=== PATIENT | female | born 1995 | race Caucasian/White ===

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

== ENCOUNTER 2017-02-10 17:14 | Emergency (ER) | payer MEDICAID ==
[~2017-02-10] VITALS: Ht 175.3 cm; Wt 77.7 kg
[~2017-02-10 17:14] MED LIST: ARIP30TA4 PO; ATOM40CA PO; TRAZ100T15 PO
[2017-02-10 17:16] VITALS: BP 118/72
[2017-02-10 18:02] LABS: HEMATOCRIT 42.6 % (34.6-47.8); HEMOGLOBIN 14.3 g/dL (11.7-16.4); WHITE BLOOD COUNT 7.3 x10^3/uL (4.5-13.2)
[2017-02-10 18:13] LABS: ASPARTATE AMINO TRANSFERASE 7 U/L (15-37); BLOOD UREA NITROGEN 20 mg/dL (7-18)
[2017-02-10] MEDS ORDERED: ONDANSETRON ODT 4 MG ONE (19:26)
[2017-02-10] MEDS ORDERED: ONDANSETRON ODT 4 MG PO ONE (19:30)
== END 2017-02-10 20:52 | disposition home or self-care (01) ==
LOC: ED 19:59
DX: R42 Dizziness and giddiness (principal); R11.0 Nausea; E03.9 Hypothyroidism, unspecified
CPT/HCPCS: 36415; 80053; 84439; 84443; 84703; 85025; 93005; 99285; Q0162

== ENCOUNTER 2017-02-22 11:34 | Emergency (ER) | payer MEDICAID ==
[~2017-02-22] VITALS: Ht 172.7 cm; Wt 77.3 kg
[2017-02-22] MEDS ORDERED: DEXAMETHASONE 4 MG TABLET ONE (12:39)
[2017-02-22] MEDS ORDERED: IBUPROFEN 200 MG TABLET ONE (12:40)
[2017-02-22] MEDS ORDERED: IBUPROFEN 200 MG TABLET PO ONE (13:00)
[2017-02-22] MEDS ORDERED: DEXAMETHASONE 4 MG TABLET PO ONE (13:00)
[2017-02-22 13:46] VITALS: BP 101/48
== END 2017-02-22 13:49 | disposition home or self-care (01) ==
LOC: ED 13:43
DX: J02.0 Streptococcal pharyngitis (principal); E03.9 Hypothyroidism, unspecified
CPT/HCPCS: 93005; 99283

== ENCOUNTER 2017-03-03 06:07 | Emergency (ER) | payer MEDICAID ==
[~2017-03-03] VITALS: Ht 175.3 cm; Wt 77.0 kg
[2017-03-03 06:08] VITALS: BP 135/67
== END 2017-03-03 10:23 | disposition home or self-care (01) ==
LOC: ED 07:08
DX: T69.9XXA Effect of reduced temperature, unspecified, initial encounter (principal); F90.9 Attention-deficit hyperactivity disorder, unspecified type; Z59.0 Homelessness; X31.XXXA Exposure to excessive natural cold, initial encounter; Y93.89 Activity, other specified; Y99.8 Other external cause status; Y92.89 Other specified places as the place of occurrence of the external cause
CPT/HCPCS: 99283

== ENCOUNTER 2017-03-22 11:51 | Emergency (ER) | payer MEDICAID ==
[~2017-03-22] VITALS: Ht 175.3 cm; Wt 75.0 kg
[2017-03-22] MEDS ORDERED: KETOROLAC 30 MG/1 ML IM ONE (12:00)
[2017-03-22] MEDS ORDERED: HYDR10TA4 PO (12:07)
[2017-03-22] MEDS ORDERED: KETOROLAC 30 MG/1 ML ONE (12:16)
[2017-03-22 12:20] LABS: HEMATOCRIT 42.6 % (34.6-47.8); HEMOGLOBIN 14.1 g/dL (11.7-16.4); WHITE BLOOD COUNT 8.8 x10^3/uL (4.5-13.2)
[2017-03-22] MEDS ORDERED: SODIUM CHLORIDE 0.9% 1,000ML IVBOLUS ONE (12:30)
[2017-03-22] MEDS ORDERED: KETOROLAC 30 MG/1 ML IVPush ONE (12:30)
[2017-03-22 12:34] LABS: BLOOD UREA NITROGEN 11 mg/dL (7-18)
[2017-03-22 12:44] LABS: IS PT STATUS REG ER OR PRE ER? YES
[2017-03-22 15:46] VITALS: BP 103/59
== END 2017-03-22 15:50 | disposition home or self-care (01) ==
LOC: ED 15:44
DX: M94.0 Chondrocostal junction syndrome [Tietze] (principal); E03.9 Hypothyroidism, unspecified; F43.10 Post-traumatic stress disorder, unspecified; F90.9 Attention-deficit hyperactivity disorder, unspecified type
CPT/HCPCS: 36415; 71010; 80048; 82040; 84484; 85025; 93005; 96361; 96374; 99285; J1885; J7030

== ENCOUNTER 2017-04-21 17:57 | Emergency (ER) | payer MEDICAID ==
[~2017-04-21] VITALS: Ht 175.3 cm; Wt 75.0 kg
[~2017-04-21 17:57] MED LIST changes: +HYDR10TA4 PO
[2017-04-21 18:53] LABS: HEMATOCRIT 44.7 % (34.6-47.8); WHITE BLOOD COUNT 7.9 x10^3/uL (4.5-13.2)
[2017-04-21 18:58] LABS: DAU SCREEN DISCLAIMER
[2017-04-21 19:06] LABS: ASPARTATE AMINO TRANSFERASE 17 U/L (15-37); BLOOD UREA NITROGEN 16 mg/dL (7-18)
[2017-04-21 19:13] LABS: ACETAMINOPHEN < 2 mcg/mL (10-30)
[2017-04-21] MEDS ORDERED: LEVO50TA5 PO (19:16)
[2017-04-21 19:57] VITALS: BP 142/86
== END 2017-04-21 19:59 | disposition home or self-care (01) ==
LOC: ED 18:42
DX: Z00.00 Encounter for general adult medical examination without abnormal findings (principal); E03.9 Hypothyroidism, unspecified; F31.9 Bipolar disorder, unspecified; F41.1 Generalized anxiety disorder; F90.9 Attention-deficit hyperactivity disorder, unspecified type
CPT/HCPCS: 36415; 80053; 80307; 80329; 84703; 85025; 99284; G0479; G0480

== ENCOUNTER 2017-05-04 15:59 | Emergency (ER) | payer MEDICAID ==
[~2017-05-04] VITALS: Ht 170.2 cm; Wt 75.4 kg
[~2017-05-04 15:59] MED LIST changes: +LEVO50TA5 PO
[2017-05-04 16:32] VITALS: BP 119/73
== END 2017-05-04 18:03 | disposition left against medical advice (07) ==
LOC: ED 18:00
DX: R10.9 Unspecified abdominal pain (principal); Z53.21 Procedure and treatment not carried out due to patient leaving prior to being seen by health care provider

== ENCOUNTER 2017-05-04 19:57 | Emergency (ER) | payer MEDICAID ==
[~2017-05-04] VITALS: Ht 170.2 cm; Wt 60.0 kg
[2017-05-04 20:15] VITALS: BP 147/90
[2017-05-04 21:42] LABS: BASOPHILS # (AUTO) 0.02 x10^3/uL (0-0.3); BASOPHILS % (AUTO) 0 % (0-1); EOSINOPHILS # (AUTO) 0.07 x10^3/uL (0-0.8); EOSINOPHILS % (AUTO) 1 % (1-7); LYMPHOCYTES # (AUTO) 1.79 x10^3/uL (1-6.1); LYMPHOCYTES % (AUTO) 22 % (22-44); MD NO; MEAN CORPUSCULAR HEMOGLOBIN 29.7 pg (27.0-34.8); MEAN CORPUSCULAR HGB CONC 33.2 g/dL (32.4-35.8); MEAN CORPUSCULAR VOLUME 89.5 fL (80-100); MONOCYTES # (AUTO) 0.88 x10^3/uL (0-1.4); MONOCYTES % (AUTO) 11 % (2-9); NEUTROPHILS # (AUTO) 5.33 x10^3/uL (1.8-8.0); NEUTROPHILS % (AUTO) 66 % (42-75); PLATELET COUNT 232 x10^3/uL (130-400); RED BLOOD COUNT 4.86 x10^6/uL (3.82-5.3); RED CELL DISTRIBUTION WIDTH 13.4 % (9.6-15.2)
[2017-05-04 21:54] LABS: ALBUMIN 3.5 g/dL (3.4-5.0); ANION GAP 5 mmol/L (5-15); CALCIUM 8.8 mg/dL (8.5-10.1); CHLORIDE 109 mmol/L (98-107); CREATININE 0.67 mg/dL (0.55-1.02)
[2017-05-04 21:55] LABS: ACETAMINOPHEN < 2 mcg/mL (10-30); SALICYLATE LEVEL < 1.7 mg/dL (2.8-20.0)
[2017-05-04 22:02] LABS: AMPHETAMINE SCREEN, URINE Positive (Negative); BARBITURATE SCREEN, URINE Negative (Negative); BENZODIAZEPINE SCREEN, URINE Negative (Negative); CANNABINOID SCREEN, URINE Negative (Negative); COCAINE SCREEN, URINE Negative (Negative); METHADONE SCREEN, URINE Negative (Negative); OPIATE SCREEN, URINE Negative (Negative)
== END 2017-05-05 01:11 | disposition home or self-care (01) ==
LOC: ED 22:00
DX: T76.21XA Adult sexual abuse, suspected, initial encounter (principal); F41.1 Generalized anxiety disorder; F43.12 Post-traumatic stress disorder, chronic; F31.9 Bipolar disorder, unspecified; F90.9 Attention-deficit hyperactivity disorder, unspecified type; E03.9 Hypothyroidism, unspecified; Y92.830 Public park as the place of occurrence of the external cause
CPT/HCPCS: 36415; 80048; 80307; 80329; 82040; 84703; 85025; 99284; G0479; G0480

== ENCOUNTER 2017-06-09 04:45 | Emergency (ER) | payer MEDICAID ==
[~2017-06-09] VITALS: Ht 175.3 cm; Wt 80.3 kg
[2017-06-09 04:47] VITALS: BP 118/69
[2017-06-09] MEDS ORDERED: IBUPROFEN 200 MG TABLET PO ONE (05:30)
[2017-06-09] MEDS ORDERED: IBUPROFEN 200 MG TABLET ONE (05:35)
== END 2017-06-09 05:56 | disposition home or self-care (01) ==
LOC: ED 05:54
DX: S39.012A Strain of muscle, fascia and tendon of lower back, initial encounter (principal); M54.6 Pain in thoracic spine; E03.9 Hypothyroidism, unspecified; F17.200 Nicotine dependence, unspecified, uncomplicated; G89.29 Other chronic pain; X58.XXXA Exposure to other specified factors, initial encounter; Y93.89 Activity, other specified; Y92.89 Other specified places as the place of occurrence of the external cause; Y99.8 Other external cause status
CPT/HCPCS: 99283

== ENCOUNTER 2017-07-04 20:29 | Emergency (ER) | payer MEDICAID ==
[~2017-07-04] VITALS: Ht 175.3 cm; Wt 79.2 kg
[2017-07-04 20:31] VITALS: BP 115/70
[2017-07-04 21:43] LABS: BASOPHILS # (AUTO) 0.05 x10^3/uL (0-0.3); BASOPHILS % (AUTO) 1 % (0-1); EOSINOPHILS # (AUTO) 0.12 x10^3/uL (0-0.8); EOSINOPHILS % (AUTO) 2 % (1-7); LYMPHOCYTES % (AUTO) 43 % (22-44); MD NO; MEAN CORPUSCULAR HEMOGLOBIN 29.4 pg (27.0-34.8); MEAN CORPUSCULAR HGB CONC 33.5 g/dL (32.4-35.8); MEAN CORPUSCULAR VOLUME 87.9 fL (80-100); MEAN PLATELET VOLUME 8.3 fL (7.4-10.4); MONOCYTES # (AUTO) 0.56 x10^3/uL (0-1.4); MONOCYTES % (AUTO) 7 % (2-9); NEUTROPHILS # (AUTO) 3.59 x10^3/uL (1.8-8.0); NEUTROPHILS % (AUTO) 48 % (42-75); PLATELET COUNT 245 x10^3/uL (130-400); RED BLOOD COUNT 4.85 x10^6/uL (3.82-5.3); RED CELL DISTRIBUTION WIDTH 13.3 % (9.6-15.2)
[2017-07-04 21:55] LABS: ALBUMIN 3.6 g/dL (3.4-5.0); ANION GAP 8 mmol/L (5-15); CALCIUM 9.3 mg/dL (8.5-10.1); CHLORIDE 107 mmol/L (98-107); CREATININE 0.71 mg/dL (0.55-1.02)
== END 2017-07-04 22:56 | disposition home or self-care (01) ==
LOC: ED 22:05
DX: J20.9 Acute bronchitis, unspecified (principal); J45.909 Unspecified asthma, uncomplicated; E03.9 Hypothyroidism, unspecified; F90.9 Attention-deficit hyperactivity disorder, unspecified type
CPT/HCPCS: 36415; 71046; 80048; 82040; 84703; 85025; 93005; 99285; J7512

== ENCOUNTER 2017-07-28 21:11 | Observation (INO) | payer MEDICAID ==
[~2017-07-28] VITALS: Ht 167.6 cm; Wt 78.0 kg
[2017-07-28 22:35] LABS: BASOPHILS # (AUTO) 0.07 x10^3/uL (0-0.3); BASOPHILS % (AUTO) 1 % (0-1); EOSINOPHILS # (AUTO) 0.13 x10^3/uL (0-0.8); EOSINOPHILS % (AUTO) 1 % (1-7); LYMPHOCYTES # (AUTO) 3.14 x10^3/uL (1-6.1); LYMPHOCYTES % (AUTO) 29 % (22-44); MD NO; MEAN CORPUSCULAR HEMOGLOBIN 28.9 pg (27.0-34.8); MEAN CORPUSCULAR HGB CONC 33.4 g/dL (32.4-35.8); MEAN CORPUSCULAR VOLUME 86.6 fL (80-100); MEAN PLATELET VOLUME 7.9 fL (7.4-10.4); MONOCYTES # (AUTO) 0.89 x10^3/uL (0-1.4); MONOCYTES % (AUTO) 8 % (2-9); NEUTROPHILS # (AUTO) 6.59 x10^3/uL (1.8-8.0); NEUTROPHILS % (AUTO) 61 % (42-75); PLATELET COUNT 360 x10^3/uL (130-400); RED BLOOD COUNT 4.89 x10^6/uL (3.82-5.3); RED CELL DISTRIBUTION WIDTH 13.5 % (9.6-15.2)
[2017-07-28 22:48] LABS: ALBUMIN 3.5 g/dL (3.4-5.0); ANION GAP 5 mmol/L (5-15); CALCIUM 8.7 mg/dL (8.5-10.1); CHLORIDE 111 mmol/L (98-107); SALICYLATE LEVEL 1.8 mg/dL (2.8-20.0)
[2017-07-28 22:54] LABS: ALANINE AMINOTRANSFERASE 16 U/L (12-78); ALKALINE PHOSPHATASE 83 U/L (45-117); BILIRUBIN,TOTAL 0.3 mg/dL (0.2-1.0); CREATININE 0.81 mg/dL (0.55-1.02); TOTAL PROTEIN 7.8 g/dL (6.4-8.2)
[2017-07-28 22:55] LABS: ACETAMINOPHEN < 2 mcg/mL (10-30)
[2017-07-28 23:34] LABS: AMPHETAMINE SCREEN, URINE Positive (Negative); BARBITURATE SCREEN, URINE Negative (Negative); BENZODIAZEPINE SCREEN, URINE Negative (Negative); CANNABINOID SCREEN, URINE Negative (Negative); COCAINE SCREEN, URINE Negative (Negative); METHADONE SCREEN, URINE Negative (Negative); OPIATE SCREEN, URINE Negative (Negative)
[2017-07-29] MEDS ORDERED: DOCUSATE 100 MG CAPSULE PO PRN (04:30)
[2017-07-29] MEDS ORDERED: ONDANSETRON ODT 4 MG PO PRN (04:30)
[2017-07-29] MEDS ORDERED: ACETAMINOPHEN 325 MG TABLET PO PRN (04:30)
[2017-07-29 19:36] VITALS: BP 107/50
[2017-07-30 08:00] VITALS: BP 74/46
[2017-07-30 20:00] VITALS: BP 109/65
== END 2017-07-30 22:23 ==
LOC: ED 23:06 → EDIP 07-29 03:55 → 3E 07-29 15:00
PROVIDERS: ADMIT Internal Medicine; ATTEND Internal Medicine
DX: R45.851 Suicidal ideations (principal); F31.9 Bipolar disorder, unspecified; E03.9 Hypothyroidism, unspecified; F15.10 Other stimulant abuse, uncomplicated; F41.1 Generalized anxiety disorder; F43.10 Post-traumatic stress disorder, unspecified; F90.9 Attention-deficit hyperactivity disorder, unspecified type; Z87.891 Personal history of nicotine dependence; Z91.14 Patient's other noncompliance with medication regimen
CPT/HCPCS: 36415; 80053; 80307; 80329; 84703; 85025; 99285; G0378; G0480

== ENCOUNTER 2017-08-03 01:40 | Emergency (ER) | payer MEDICAID ==
[~2017-08-03] VITALS: Ht 172.7 cm; Wt 80.0 kg
[2017-08-03 02:01] VITALS: BP 121/75
== END 2017-08-03 02:03 | disposition home or self-care (01) ==
LOC: ED 01:45
DX: R07.89 Other chest pain (principal); F43.10 Post-traumatic stress disorder, unspecified; F31.9 Bipolar disorder, unspecified; E03.9 Hypothyroidism, unspecified; I73.00 Raynaud's syndrome without gangrene
CPT/HCPCS: 93005; 99283

== ENCOUNTER 2017-08-17 13:24 | Emergency (ER) | payer MEDICAID ==
[~2017-08-17] VITALS: Ht 175.3 cm; Wt 80.1 kg
[2017-08-17 13:26] VITALS: BP 114/66
[2017-08-17] MEDS ORDERED: KETOROLAC 30 MG/1 ML ONE (14:38)
[2017-08-17] MEDS ORDERED: PROMETHAZINE 25 MG/ML, 1ML ONE (14:38)
[2017-08-17] MEDS ORDERED: KETOROLAC 30 MG/1 ML IM ONE (15:00)
[2017-08-17] MEDS ORDERED: PROMETHAZINE 25 MG/ML, 1ML IM ONE (15:00)
[2017-08-17 15:33] LABS: MICROSCOPIC AUTO
[2017-08-17 15:34] LABS: CULTURE INDICATED? YES
[2017-08-17 15:35] LABS: HCG UR SG 1.022 (1.003-1.030)
== END 2017-08-17 15:48 | disposition home or self-care (01) ==
LOC: ED 15:42
DX: G43.019 Migraine without aura, intractable, without status migrainosus (principal); N30.90 Cystitis, unspecified without hematuria; F17.200 Nicotine dependence, unspecified, uncomplicated; E03.9 Hypothyroidism, unspecified; F43.10 Post-traumatic stress disorder, unspecified
CPT/HCPCS: 81001; 81025; 87077; 87086; 93005; 96372; 99285; J1885; J2550

== ENCOUNTER 2017-08-24 13:18 | Emergency (ER) | payer MEDICAID ==
[~2017-08-24] VITALS: Ht 175.3 cm; Wt 78.8 kg
[2017-08-24 13:29] VITALS: BP 110/77
[2017-08-24] MEDS ORDERED: KETOROLAC 30 MG/1 ML IM ONE (14:00)
[2017-08-24] MEDS ORDERED: KETOROLAC 30 MG/1 ML ONE (14:07)
[2017-08-24 14:19] LABS: BASOPHILS # (AUTO) 0.03 x10^3/uL (0-0.3); BASOPHILS % (AUTO) 0 % (0-1); EOSINOPHILS # (AUTO) 0.13 x10^3/uL (0-0.8); EOSINOPHILS % (AUTO) 2 % (1-7); LYMPHOCYTES # (AUTO) 1.88 x10^3/uL (1-6.1); LYMPHOCYTES % (AUTO) 27 % (22-44); MD NO; MEAN CORPUSCULAR HEMOGLOBIN 28.6 pg (27.0-34.8); MEAN CORPUSCULAR HGB CONC 32.7 g/dL (32.4-35.8); MEAN CORPUSCULAR VOLUME 87.5 fL (80-100); MEAN PLATELET VOLUME 8.3 fL (7.4-10.4); MONOCYTES # (AUTO) 0.74 x10^3/uL (0-1.4); MONOCYTES % (AUTO) 11 % (2-9); NEUTROPHILS # (AUTO) 4.22 x10^3/uL (1.8-8.0); NEUTROPHILS % (AUTO) 60 % (42-75); PLATELET COUNT 256 x10^3/uL (130-400); RED BLOOD COUNT 4.78 x10^6/uL (3.82-5.3); RED CELL DISTRIBUTION WIDTH 15.2 % (9.6-15.2)
[2017-08-24 14:33] LABS: CULTURE INDICATED? YES; MICROSCOPIC INDICATED
== END 2017-08-24 15:18 | disposition home or self-care (01) ==
LOC: ED 15:00
DX: N93.9 Abnormal uterine and vaginal bleeding, unspecified (principal); G43.909 Migraine, unspecified, not intractable, without status migrainosus; F90.9 Attention-deficit hyperactivity disorder, unspecified type; F17.210 Nicotine dependence, cigarettes, uncomplicated; Z59.0 Homelessness
CPT/HCPCS: 36415; 81001; 84703; 85025; 87077; 87086; 87186; 96372; 99284; J1885

== ENCOUNTER 2017-09-20 20:16 | Observation (INO) | payer MEDICAID ==
[~2017-09-20] VITALS: Ht 175.3 cm; Wt 80.0 kg
[2017-09-20 20:52] LABS: BASOPHILS # (AUTO) 0.02 x10^3/uL (0-0.3); BASOPHILS % (AUTO) 0 % (0-1); EOSINOPHILS # (AUTO) 0.12 x10^3/uL (0-0.8); EOSINOPHILS % (AUTO) 1 % (1-7); LYMPHOCYTES % (AUTO) 25 % (22-44); MD NO; MEAN CORPUSCULAR HEMOGLOBIN 28.1 pg (27.0-34.8); MEAN CORPUSCULAR HGB CONC 33.2 g/dL (32.4-35.8); MEAN CORPUSCULAR VOLUME 84.7 fL (80-100); MEAN PLATELET VOLUME 8.4 fL (7.4-10.4); MONOCYTES # (AUTO) 0.58 x10^3/uL (0-1.4); MONOCYTES % (AUTO) 7 % (2-9); NEUTROPHILS # (AUTO) 5.75 x10^3/uL (1.8-8.0); NEUTROPHILS % (AUTO) 67 % (42-75); PLATELET COUNT 243 x10^3/uL (130-400); RED BLOOD COUNT 4.56 x10^6/uL (3.82-5.3); RED CELL DISTRIBUTION WIDTH 14.7 % (9.6-15.2)
[2017-09-20 21:02] LABS: AMPHETAMINE SCREEN, URINE Positive (Negative); BARBITURATE SCREEN, URINE Negative (Negative); BENZODIAZEPINE SCREEN, URINE Negative (Negative); CANNABINOID SCREEN, URINE Negative (Negative); COCAINE SCREEN, URINE Negative (Negative); METHADONE SCREEN, URINE Negative (Negative); OPIATE SCREEN, URINE Negative (Negative)
[2017-09-20 21:03] LABS: ALBUMIN 3.2 g/dL (3.4-5.0); ANION GAP 6 mmol/L (5-15); CALCIUM 8.5 mg/dL (8.5-10.1); CHLORIDE 111 mmol/L (98-107)
[2017-09-20 21:05] LABS: SALICYLATE LEVEL < 1.7 mg/dL (2.8-20.0)
[2017-09-20 21:06] LABS: ACETAMINOPHEN < 2 mcg/mL (10-30)
[2017-09-21] MEDS ORDERED: ONDANSETRON ODT 4 MG PO PRN (02:00)
[2017-09-21] MEDS ORDERED: LORazepam 2 MG/ML, 1ML IM PRN (02:00)
[2017-09-21] MEDS ORDERED: DOCUSATE 100 MG CAPSULE PO PRN (02:00)
[2017-09-21] MEDS ORDERED: LORazepam 1MG TABLET PO PRN (02:00)
[2017-09-21] MEDS ORDERED: ACETAMINOPHEN 325 MG TABLET PO PRN (02:00)
[2017-09-21] MEDS ORDERED: NICOTINE 7 MG/24 HR PATCH.TD24 TD SCH (02:00)
[2017-09-21 08:20] VITALS: BP 119/66
== END 2017-09-21 15:00 ==
LOC: ED 21:58 → EDIP 22:00 → 3E 09-21 02:31
PROVIDERS: ADMIT Internal Medicine; ATTEND Hospitalist
DX: R45.851 Suicidal ideations (principal); E03.9 Hypothyroidism, unspecified; F15.90 Other stimulant use, unspecified, uncomplicated; F31.9 Bipolar disorder, unspecified; F43.10 Post-traumatic stress disorder, unspecified; F90.9 Attention-deficit hyperactivity disorder, unspecified type; Z87.891 Personal history of nicotine dependence
CPT/HCPCS: 36415; 80048; 80307; 80329; 82040; 84443; 84703; 85025; 99285; G0378; G0480

== ENCOUNTER 2017-10-26 08:35 | Emergency (ER) | payer MEDICAID ==
[~2017-10-26] VITALS: Ht 175.3 cm; Wt 79.2 kg
[2017-10-26 08:36] VITALS: BP 97/51
[2017-10-26] MEDS ORDERED: hydrOXyzine 10MG TABLET PO ONE (09:34)
[2017-10-26] MEDS ORDERED: hydrOXyzine 10MG TABLET ONE (09:54)
== END 2017-10-26 10:53 | disposition home or self-care (01) ==
LOC: ED 10:30
DX: L50.9 Urticaria, unspecified (principal); F17.200 Nicotine dependence, unspecified, uncomplicated
CPT/HCPCS: 99283

== ENCOUNTER 2018-01-18 09:31 | Emergency (ER) | payer MEDICAID ==
[~2018-01-18] VITALS: Ht 175.3 cm; Wt 70.0 kg
[~2018-01-18 09:31] MED LIST changes: +TRAZ-137 PO; -TRAZ100T15 PO
[2018-01-18 09:52] VITALS: BP 113/65
== END 2018-01-18 12:12 | disposition home or self-care (01) ==
LOC: ED 12:00
DX: R05 Cough (principal); G43.909 Migraine, unspecified, not intractable, without status migrainosus; F90.9 Attention-deficit hyperactivity disorder, unspecified type; F31.9 Bipolar disorder, unspecified; F43.10 Post-traumatic stress disorder, unspecified; E03.9 Hypothyroidism, unspecified; F41.1 Generalized anxiety disorder
CPT/HCPCS: 71046; 99284

== ENCOUNTER 2018-01-23 06:24 | Emergency (ER) | payer MEDICAID ==
[~2018-01-23] VITALS: Ht 175.3 cm; Wt 77.0 kg
[2018-01-23] MEDS ORDERED: TESSALON PERLES (07:01)
[2018-01-23] MEDS ORDERED: IBUPROFEN 800 MG TABLET ONE (07:29)
[2018-01-23] MEDS ORDERED: IBUPROFEN 200 MG TABLET PO ONE (07:30)
[2018-01-23 07:58] VITALS: BP 128/81
== END 2018-01-23 08:02 | disposition home or self-care (01) ==
LOC: ED 07:56
DX: M94.0 Chondrocostal junction syndrome [Tietze] (principal); B34.9 Viral infection, unspecified; F31.9 Bipolar disorder, unspecified; E03.9 Hypothyroidism, unspecified; F41.1 Generalized anxiety disorder; F17.210 Nicotine dependence, cigarettes, uncomplicated
CPT/HCPCS: 99283

== ENCOUNTER 2018-01-29 16:02 | Emergency (ER) | payer MEDICAID ==
[~2018-01-29] VITALS: Ht 175.3 cm; Wt 75.0 kg
[~2018-01-29 16:02] MED LIST changes: +TESSALON PERLES
[2018-01-29 16:47] VITALS: BP 103/53
[2018-01-29 16:54] LABS: BASOPHILS # (AUTO) 0.06 x10^3/uL (0-0.1); BASOPHILS % (AUTO) 1 % (0-1); EOSINOPHILS # (AUTO) 0.19 x10^3/uL (0-0.4); EOSINOPHILS % (AUTO) 2 % (1-7); LYMPHOCYTES # (AUTO) 2.08 x10^3/uL (1-3.4); LYMPHOCYTES % (AUTO) 22 % (22-44); MD NO; MEAN CORPUSCULAR HEMOGLOBIN 28.9 pg (27.0-34.8); MEAN CORPUSCULAR VOLUME 87.6 fL (80-100); MEAN PLATELET VOLUME 7.9 fL (7.4-10.4); MONOCYTES # (AUTO) 0.66 x10^3/uL (0.2-0.8); MONOCYTES % (AUTO) 7 % (2-9); NEUTROPHILS # (AUTO) 6.56 x10^3/uL (1.8-6.8); NEUTROPHILS % (AUTO) 69 % (42-75); PLATELET COUNT 297 x10^3/uL (130-400); RED BLOOD COUNT 4.87 x10^6/uL (3.82-5.3); RED CELL DISTRIBUTION WIDTH 13.9 % (9.6-15.2)
[2018-01-29] MEDS ORDERED: SODIUM CHLORIDE FLUSH 10ML SYR IVF ONE (17:00)
[2018-01-29] MEDS ORDERED: SODIUM CHLORIDE 0.9% 1,000ML IVBOLUS ONE (17:00)
[2018-01-29 17:04] LABS: ALBUMIN 3.2 g/dL (3.4-5.0); ANION GAP 5 mmol/L (5-15); CALCIUM 8.5 mg/dL (8.5-10.1); CHLORIDE 109 mmol/L (98-107)
[2018-01-29 17:10] LABS: ALANINE AMINOTRANSFERASE 18 U/L (12-78); ALKALINE PHOSPHATASE 70 U/L (45-117); BILIRUBIN,TOTAL 0.3 mg/dL (0.2-1.0); TOTAL PROTEIN 7.5 g/dL (6.4-8.2)
== END 2018-01-29 17:48 | disposition home or self-care (01) ==
LOC: ED 16:08
DX: R55 Syncope and collapse (principal); Z59.0 Homelessness; Z60.9 Problem related to social environment, unspecified; Z72.9 Problem related to lifestyle, unspecified; G43.909 Migraine, unspecified, not intractable, without status migrainosus; F43.10 Post-traumatic stress disorder, unspecified; F90.9 Attention-deficit hyperactivity disorder, unspecified type; F31.9 Bipolar disorder, unspecified; E03.9 Hypothyroidism, unspecified; Z88.8 Allergy status to other drugs, medicaments and biological substances; Z88.6 Allergy status to analgesic agent; F17.200 Nicotine dependence, unspecified, uncomplicated
CPT/HCPCS: 36415; 80053; 83690; 84703; 85025; 93005; 96360; 99285; J7030

== ENCOUNTER 2018-04-02 20:32 | Emergency (ER) | payer SELFPAY ==
[~2018-04-02] VITALS: Ht 165.1 cm; Wt 75.0 kg
[2018-04-02] MEDS ORDERED: BACITRACIN ZINC OINT 500U/GM, 0.9 GM ONE (21:01)
[2018-04-02 22:39] LABS: HCG UR SG 1.027 (1.003-1.030); MICROSCOPIC INDICATED
[2018-04-02 22:40] LABS: CULTURE INDICATED? YES
[2018-04-02] MEDS ORDERED: FOSFOMYCIN 3 GM PACKET PO ONE (23:30)
[2018-04-03 00:10] VITALS: BP 121/68
== END 2018-04-03 00:12 | disposition home or self-care (01) ==
LOC: ED 21:03
DX: N30.00 Acute cystitis without hematuria (principal); S16.1XXA Strain of muscle, fascia and tendon at neck level, initial encounter; T76.21XA Adult sexual abuse, suspected, initial encounter; Y04.8XXA Assault by other bodily force, initial encounter; Y93.89 Activity, other specified; Y99.8 Other external cause status; Y92.89 Other specified places as the place of occurrence of the external cause
CPT/HCPCS: 72050; 81001; 81025; 87077; 87086; 87186; 99284

== ENCOUNTER 2018-04-12 05:38 | Observation (INO) | payer OTHER ==
[~2018-04-12] VITALS: Ht 175.3 cm; Wt 75.0 kg
[2018-04-12 06:25] LABS: BASOPHILS # (AUTO) 0.02 x10^3/uL (0-0.1); BASOPHILS % (AUTO) 0 % (0-1); EOSINOPHILS # (AUTO) 0.15 x10^3/uL (0-0.4); EOSINOPHILS % (AUTO) 2 % (1-7); LYMPHOCYTES # (AUTO) 3.28 x10^3/uL (1-3.4); LYMPHOCYTES % (AUTO) 45 % (22-44); MD NO; MEAN CORPUSCULAR HEMOGLOBIN 29.1 pg (27.0-34.8); MEAN CORPUSCULAR HGB CONC 33.6 g/dL (32.4-35.8); MEAN CORPUSCULAR VOLUME 86.8 fL (80-100); MEAN PLATELET VOLUME 8.2 fL (7.4-10.4); MONOCYTES # (AUTO) 0.66 x10^3/uL (0.2-0.8); MONOCYTES % (AUTO) 9 % (2-9); NEUTROPHILS # (AUTO) 3.16 x10^3/uL (1.8-6.8); NEUTROPHILS % (AUTO) 44 % (42-75); PLATELET COUNT 253 x10^3/uL (130-400); RED BLOOD COUNT 4.72 x10^6/uL (3.82-5.3); RED CELL DISTRIBUTION WIDTH 13.6 % (9.6-15.2)
[2018-04-12] MEDS ORDERED: ATOM40CA PO (06:25)
[2018-04-12 06:34] LABS: ALBUMIN 3.3 g/dL (3.4-5.0); ANION GAP 6 mmol/L (5-15); CALCIUM 8.5 mg/dL (8.5-10.1); CHLORIDE 109 mmol/L (98-107)
[2018-04-12 06:41] LABS: CREATININE 1.18 mg/dL (0.55-1.02)
[2018-04-12 06:43] LABS: ACETAMINOPHEN < 2 mcg/mL (10-30); SALICYLATE LEVEL < 1.7 mg/dL (2.8-20.0)
[2018-04-12 07:39] LABS: ALBUMIN 3.3 g/dL (3.4-5.0); BILIRUBIN, DIRECT 0.1 mg/dL (0.1-0.2)
[2018-04-12 07:41] LABS: BILIRUBIN,INDIRECT 0.3 mg/dL (0.0-2.0); BILIRUBIN,TOTAL 0.4 mg/dL (0.2-1.0); TOTAL PROTEIN 6.7 g/dL (6.4-8.2)
[2018-04-12 09:50] LABS: AMPHETAMINE SCREEN, URINE Positive (Negative); BARBITURATE SCREEN, URINE Negative (Negative); BENZODIAZEPINE SCREEN, URINE Negative (Negative); CANNABINOID SCREEN, URINE Negative (Negative); COCAINE SCREEN, URINE Negative (Negative); METHADONE SCREEN, URINE Negative (Negative); OPIATE SCREEN, URINE Negative (Negative)
[2018-04-12] MEDS ORDERED: LORazepam 2 MG/ML, 1ML IM PRN ×2 (11:00)
[2018-04-12 11:30] VITALS: BP 106/55
[2018-04-12] MEDS: NICOTINE 7 MG/24 HR PATCH.TD24 TD SCH (11:37)
[2018-04-12 11:43] LABS: FREE T4 (FREE THYROXINE) 0.9 ng/dL (0.76-1.46); THYROID STIMULATING HORMONE 1.77 mIU/L (0.358-3.740)
[2018-04-12 12:14] VITALS: BP 106/55
[2018-04-12 20:00] VITALS: BP 101/61
[2018-04-12] MEDS: ACETAMINOPHEN 325 MG TABLET PO PRN (20:12)
[2018-04-13 07:47] VITALS: BP 96/64
[2018-04-13] MEDS: NICOTINE 7 MG/24 HR PATCH.TD24 TD SCH (12:33)
[2018-04-13 19:30] VITALS: BP 91/57
[2018-04-14 08:26] VITALS: BP 125/68
[2018-04-14] MEDS: NICOTINE 7 MG/24 HR PATCH.TD24 TD SCH (11:08)
[2018-04-14 19:14] VITALS: BP 91/62
[2018-04-14] MEDS: ACETAMINOPHEN 325 MG TABLET PO PRN (20:22)
[2018-04-15 08:00] VITALS: BP 109/68
[2018-04-15] MEDS: NICOTINE 7 MG/24 HR PATCH.TD24 TD SCH (11:05)
[2018-04-15] MEDS: LORazepam 1MG TABLET PO PRN (18:31)
[2018-04-15 19:42] VITALS: BP 91/58
[2018-04-16 08:51] VITALS: BP 103/58
[2018-04-16] MEDS: NICOTINE 7 MG/24 HR PATCH.TD24 TD SCH (11:35)
[2018-04-16] MEDS: LORazepam 1MG TABLET PO PRN ×2 (16:00→22:39)
[2018-04-16 19:44] VITALS: BP 105/67
[2018-04-17 07:23] VITALS: BP 112/69
[2018-04-17] MEDS: NICOTINE 7 MG/24 HR PATCH.TD24 TD SCH (10:19)
[2018-04-17] MEDS: LORazepam 1MG TABLET PO PRN ×2 (18:50→21:21)
[2018-04-17 19:27] VITALS: BP 105/61
[2018-04-18 07:57] VITALS: BP 102/68
[2018-04-18] MEDS: NICOTINE 7 MG/24 HR PATCH.TD24 TD SCH (13:20)
[2018-04-18] MEDS: IBUPROFEN 600 MG TABLET PO PRN (18:30)
[2018-04-18 19:54] VITALS: BP 114/81
[2018-04-19 08:02] VITALS: BP 114/67
[2018-04-19] MEDS: NICOTINE 7 MG/24 HR PATCH.TD24 TD SCH (10:32)
[2018-04-19] MEDS: IBUPROFEN 600 MG TABLET PO PRN (16:23)
[2018-04-19 19:45] VITALS: BP 101/59
[2018-04-20 07:46] VITALS: BP 114/74
[2018-04-20] MEDS: NICOTINE 7 MG/24 HR PATCH.TD24 TD SCH (11:00)
== END 2018-04-20 12:00 | disposition home or self-care (01) ==
LOC: ED 05:46 → EDIP 10:49 → 2N 11:21
PROVIDERS: ADMIT Hospitalist; ATTEND Hospitalist
DX: R45.851 Suicidal ideations (principal); F31.9 Bipolar disorder, unspecified; E03.9 Hypothyroidism, unspecified; F17.210 Nicotine dependence, cigarettes, uncomplicated; F15.10 Other stimulant abuse, uncomplicated; F43.10 Post-traumatic stress disorder, unspecified; S21.002D Unspecified open wound of left breast, subsequent encounter; X58.XXXD Exposure to other specified factors, subsequent encounter; Z59.0 Homelessness; Z87.820 Personal history of traumatic brain injury; Z91.14 Patient's other noncompliance with medication regimen; Z91.5 Personal history of self-harm
CPT/HCPCS: 36415; 80048; 80076; 80307; 80329; 82040; 84439; 84443; 84703; 85025; 93005; 99284; G0378; G0480

== ENCOUNTER 2018-05-15 02:50 | Emergency (ER) | payer MEDICAID ==
[~2018-05-15] VITALS: Ht 167.6 cm; Wt 61.0 kg
[2018-05-15 02:53] VITALS: BP 125/83
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
--- NOTE | 2018-05-15 04:00 | NUR ---
Patient/Caregiver given discharge instructions and they have confirmed that they understand the instructions. Patient ambulatory with steady gait.
== END 2018-05-15 04:02 | disposition home or self-care (01) ==
LOC: ED 03:08
DX: M54.9 Dorsalgia, unspecified (principal); G89.29 Other chronic pain; Z59.0 Homelessness; Z72.9 Problem related to lifestyle, unspecified; E03.9 Hypothyroidism, unspecified; F17.200 Nicotine dependence, unspecified, uncomplicated
CPT/HCPCS: 99283

== ENCOUNTER 2018-05-16 19:25 | Emergency (ER) | payer MEDICAID | END 2018-05-16 21:30 | LOC: ED 21:24 | DX: R10.9 Unspecified abdominal pain (principal) | CPT/HCPCS: 99281 ==

== ENCOUNTER 2018-05-20 14:07 | Emergency (ER) | payer MEDICAID ==
[~2018-05-20] VITALS: Ht 175.3 cm; Wt 75.0 kg
[2018-05-20] MEDS ORDERED: SODIUM CHLORIDE FLUSH 10ML SYR IVF ONE (14:30)
[2018-05-20 15:14] LABS: ALANINE AMINOTRANSFERASE 20 U/L (12-78); ALBUMIN 3.5 g/dL (3.4-5.0); ANION GAP 10 mmol/L (5-15); CHLORIDE 109 mmol/L (98-107); CREATININE 0.68 mg/dL (0.55-1.02)
[2018-05-20 15:16] LABS: ALKALINE PHOSPHATASE 74 U/L (45-117); BILIRUBIN,TOTAL 0.3 mg/dL (0.2-1.0); TOTAL PROTEIN 7.7 g/dL (6.4-8.2)
--- NOTE | 2018-05-20 15:29 | NUR ---
LATE NOTE ENTRY FOR 1408. PT BROUGHT IN BY EMS WITH C/O GENERALIZED ABDOMINAL PAIN, MORE NOTICABLE ON THE LOWER RIGHT QUADRANT. PT STATES SHE HAS AN IUD AND HER LMP WAS TWO WEEKS AGO. PT C/O DIARRHEA THAT IS "WATER" AND BOUTS OF INCONTINENCE OF STOOL. PT STATES SHE WAS DISCHARGED FROM [facility] ED TODAY AND ATTEMPTED TO WALK TO THE [facility] AND COULDN'T MAKE IT DO TO THE PAIN. NADN. PT RESTING ON GURNEY CONNECTED TO NIBP AND CONTINOUS PULSE OX. ISOLATION MEASURES IN PLACE FOR DIARRHEA. NO NEEDS REQUESTED AT THIS TIME. PT STATES SHE STAYS AT THE NURSING HOME OR THE PARK [place]CROSS FROM [facility] AND RECIEVES HELP FROM THE [facility].
--- NOTE | 2018-05-20 15:41 | NUR ---
Pt provided bedside commode for stool sample and a hat for urine sample. Pt states verbal understanding. Pt states, "I don't have to go right now."
[2018-05-20 16:01] LABS: BASOPHILS # (AUTO) 0.01 x10^3/uL (0-0.1); BASOPHILS % (AUTO) 0 % (0-1); EOSINOPHILS # (AUTO) 0.05 x10^3/uL (0-0.4); EOSINOPHILS % (AUTO) 1 % (1-7); LYMPHOCYTES # (AUTO) 1.04 x10^3/uL (1-3.4); LYMPHOCYTES % (AUTO) 12 % (22-44); MD NO; MEAN CORPUSCULAR HEMOGLOBIN 29.4 pg (27.0-34.8); MEAN CORPUSCULAR HGB CONC 33.8 g/dL (32.4-35.8); MEAN PLATELET VOLUME 8.1 fL (7.4-10.4); MONOCYTES # (AUTO) 0.44 x10^3/uL (0.2-0.8); MONOCYTES % (AUTO) 5 % (2-9); NEUTROPHILS % (AUTO) 82 % (42-75); PLATELET COUNT 221 x10^3/uL (130-400); RED BLOOD COUNT 4.67 x10^6/uL (3.82-5.3); RED CELL DISTRIBUTION WIDTH 14.1 % (9.6-15.2)
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
[2018-05-20 17:39] LABS: CLOSTRIDIUM DIFFICILE ANTIGEN NEGATIVE; CLOSTRIDIUM DIFFICILE TOXIN NEGATIVE (Negative)
[2018-05-20] MEDS ORDERED: OMNIPAQUE 350 MG/ML, 100ML BOTTLE ONE (17:55)
--- NOTE | 2018-05-20 18:48 | NUR ---
Provided report to ADRIANO Hester. All questions answered.
--- NOTE | 2018-05-20 19:04 | NUR ---
ASSUMED CARE OF PATIENT. PATIENT IS NOT ABLE TO GIVE A UA AT THIS TIME. VS STABLE. CALL LIGHT IN PLACE. WILL CONTINUE TO MONITOR.
[2018-05-20 19:20] VITALS: BP 102/50
== END 2018-05-20 19:23 | disposition home or self-care (01) ==
LOC: ED 14:27
DX: K52.9 Noninfective gastroenteritis and colitis, unspecified (principal); G43.909 Migraine, unspecified, not intractable, without status migrainosus; E03.9 Hypothyroidism, unspecified; F17.200 Nicotine dependence, unspecified, uncomplicated
CPT/HCPCS: 36415; 74177; 80053; 83690; 84703; 85025; 87324; 89055; 99284; Q9967

== ENCOUNTER 2018-05-30 20:13 | Emergency (ER) | payer MEDICAID ==
[~2018-05-30] VITALS: Ht 175.3 cm; Wt 73.6 kg
[2018-05-30 20:15] VITALS: BP 109/59
== END 2018-05-30 21:06 | disposition home or self-care (01) ==
LOC: ED 20:24
DX: B34.9 Viral infection, unspecified (principal); J00 Acute nasopharyngitis [common cold]; F43.10 Post-traumatic stress disorder, unspecified; F41.1 Generalized anxiety disorder; F31.9 Bipolar disorder, unspecified; G43.909 Migraine, unspecified, not intractable, without status migrainosus; F90.9 Attention-deficit hyperactivity disorder, unspecified type; Z72.9 Problem related to lifestyle, unspecified
CPT/HCPCS: 71046; 99283

== ENCOUNTER 2018-07-02 19:49 | Emergency (ER) | payer MEDICAID ==
[~2018-07-02] VITALS: Ht 175.3 cm; Wt 74.5 kg
[2018-07-02 19:54] VITALS: BP 108/70
--- NOTE | 2018-07-02 20:35 | NUR ---
PT GIVEN JUICE,CRACKERS AND PEANUT BUTTER PER PA REQUEST. AWITING FURTHER ORDERS AND DISPO AT THIS TIME
== END 2018-07-02 21:22 | disposition home or self-care (01) ==
LOC: ED 20:48
DX: B34.9 Viral infection, unspecified (principal); F31.9 Bipolar disorder, unspecified; E03.9 Hypothyroidism, unspecified; G89.29 Other chronic pain; F17.200 Nicotine dependence, unspecified, uncomplicated
CPT/HCPCS: 99283

== ENCOUNTER 2018-07-16 17:33 | Emergency (ER) | payer MEDICAID ==
[~2018-07-16] VITALS: Ht 175.3 cm; Wt 77.0 kg
[2018-07-16 17:42] VITALS: BP 110/62
[2018-07-16] MEDS ORDERED: IBUPROFEN 200 MG TABLET ONE (18:12)
[2018-07-16] MEDS ORDERED: IBUPROFEN 200 MG TABLET PO ONE (18:30)
== END 2018-07-16 18:44 | disposition home or self-care (01) ==
LOC: ED 18:04
DX: S83.92XA Sprain of unspecified site of left knee, initial encounter (principal); S93.402A Sprain of unspecified ligament of left ankle, initial encounter; I10 Essential (primary) hypertension; E03.9 Hypothyroidism, unspecified; F17.200 Nicotine dependence, unspecified, uncomplicated; Z88.1 Allergy status to other antibiotic agents; Z88.5 Allergy status to narcotic agent; W10.9XXA Fall (on) (from) unspecified stairs and steps, initial encounter; Y93.89 Activity, other specified; Y92.488 Other paved roadways as the place of occurrence of the external cause; Y99.8 Other external cause status
CPT/HCPCS: 99283

== ENCOUNTER 2018-07-27 13:01 | Emergency (ER) | payer MEDICAID | END 2018-07-27 13:54 | disposition left against medical advice (07) | LOC: ED 13:48 | DX: R07.9 Chest pain, unspecified (principal); Z53.21 Procedure and treatment not carried out due to patient leaving prior to being seen by health care provider ==

== ENCOUNTER 2018-08-15 03:28 | Emergency (ER) | payer MEDICAID ==
[~2018-08-15] VITALS: Ht 177.8 cm; Wt 76.0 kg
[2018-08-15 03:40] VITALS: BP 116/53
--- NOTE | 2018-08-15 04:08 | NUR ---
PT TO ROOM PLACED IN A GOWN AND INSTRUCTED ON COLLECTING A URINE SAMPLE. PT VERBALIZED UNDERSTANDING.
[2018-08-15 04:20] LABS: BASOPHILS # (AUTO) 0.02 x10^3/uL (0-0.1); BASOPHILS % (AUTO) 0 % (0-1); EOSINOPHILS # (AUTO) 0.11 x10^3/uL (0-0.4); EOSINOPHILS % (AUTO) 1 % (1-7); LYMPHOCYTES # (AUTO) 2.42 x10^3/uL (1-3.4); LYMPHOCYTES % (AUTO) 31 % (22-44); MD NO; MEAN CORPUSCULAR HEMOGLOBIN 29.1 pg (27.0-34.8); MEAN CORPUSCULAR HGB CONC 33.2 g/dL (32.4-35.8); MEAN CORPUSCULAR VOLUME 87.6 fL (80-100); MEAN PLATELET VOLUME 8.3 fL (7.4-10.4); MONOCYTES # (AUTO) 0.59 x10^3/uL (0.2-0.8); MONOCYTES % (AUTO) 8 % (2-9); NEUTROPHILS # (AUTO) 4.75 x10^3/uL (1.8-6.8); NEUTROPHILS % (AUTO) 60 % (42-75); PLATELET COUNT 245 x10^3/uL (130-400); RED BLOOD COUNT 4.74 x10^6/uL (3.82-5.3); RED CELL DISTRIBUTION WIDTH 14.3 % (9.6-15.2)
--- NOTE | 2018-08-15 04:32 | NUR ---
URINE TO LAB
[2018-08-15 04:34] LABS: ALANINE AMINOTRANSFERASE 26 U/L (12-78); ANION GAP 4 mmol/L (5-15); CALCIUM 8.7 mg/dL (8.5-10.1); CHLORIDE 106 mmol/L (98-107); CREATININE 0.78 mg/dL (0.55-1.02)
[2018-08-15 04:36] LABS: ALKALINE PHOSPHATASE 73 U/L (45-117); BILIRUBIN,TOTAL 0.8 mg/dL (0.2-1.0); TOTAL PROTEIN 7.6 g/dL (6.4-8.2)
[2018-08-15 05:07] LABS: HCG UR SG 1.032 (1.003-1.030); MICROSCOPIC AUTO
[2018-08-15 05:08] LABS: CULTURE INDICATED? YES
[2018-08-15] MEDS ORDERED: NITROFURANTOIN (MACROBID) 100 MG CAPSULE PO ONE (05:30)
[2018-08-15] MEDS ORDERED: NITROFURANTOIN (MACROBID) 100 MG CAPSULE ONE (05:31)
== END 2018-08-15 06:00 | disposition home or self-care (01) ==
LOC: ED 05:28
DX: N30.00 Acute cystitis without hematuria (principal); R10.12 Left upper quadrant pain; R10.32 Left lower quadrant pain; I10 Essential (primary) hypertension; G43.909 Migraine, unspecified, not intractable, without status migrainosus; F43.10 Post-traumatic stress disorder, unspecified; F41.1 Generalized anxiety disorder; E03.9 Hypothyroidism, unspecified; F31.9 Bipolar disorder, unspecified; F90.9 Attention-deficit hyperactivity disorder, unspecified type; Z72.9 Problem related to lifestyle, unspecified
CPT/HCPCS: 36415; 80053; 81001; 81025; 83690; 85025; 87077; 87086; 87186; 99283

== ENCOUNTER 2018-08-21 12:44 | Emergency (ER) | payer MEDICAID ==
[~2018-08-21] VITALS: Ht 177.8 cm; Wt 74.5 kg
[2018-08-21 12:52] VITALS: BP 105/66
--- NOTE | 2018-08-21 14:54 | NUR ---
No answer when called for vitals.
--- NOTE | 2018-08-21 15:10 | NUR ---
NO ANSWER IN LOBBY
--- NOTE | 2018-08-21 15:13 | NUR ---
NO ANSWER IN LOBBY
== END 2018-08-21 15:17 | disposition left against medical advice (07) ==
LOC: ED 15:11
DX: R52 Pain, unspecified (principal); Z53.21 Procedure and treatment not carried out due to patient leaving prior to being seen by health care provider
CPT/HCPCS: 93005

== ENCOUNTER 2018-09-21 17:57 | Emergency (ER) | payer MEDICAID ==
--- NOTE | 2018-09-21 18:08 | NUR ---
NO ANSWER IN LOBBY OR RESTROOM.
--- NOTE | 2018-09-21 18:14 | NUR ---
NO ANSWER IN LOBBY AT THIS TIME.
--- NOTE | 2018-09-21 18:25 | NUR ---
NO ANSWER IN LOBBY AT THIS TIME.
== END 2018-09-21 18:28 | disposition left against medical advice (07) ==
LOC: ED 18:22
DX: R06.02 Shortness of breath (principal); R07.81 Pleurodynia; Z53.21 Procedure and treatment not carried out due to patient leaving prior to being seen by health care provider

== ENCOUNTER 2018-09-25 19:41 | Emergency (ER) | payer SELFPAY ==
[~2018-09-25] VITALS: Ht 175.3 cm; Wt 75.9 kg
[2018-09-25] MEDS ORDERED: ABILIFY (19:55)
[2018-09-25] MEDS ORDERED: STRATERRA (19:55)
[2018-09-25] MEDS ORDERED: HYDROXYZINE (19:55)
[2018-09-25] MEDS ORDERED: TRAZODONE (19:55)
[2018-09-25] MEDS ORDERED: LEVOTHYROXINE (19:55)
[2018-09-25] MEDS ORDERED: IBUPROFEN 200 MG TABLET ONE (20:11)
[2018-09-25] MEDS ORDERED: IBUPROFEN 800 MG TABLET PO ONE (20:30)
== END 2018-09-25 21:06 | disposition home or self-care (01) ==
LOC: ED 20:34
DX: S83.92XA Sprain of unspecified site of left knee, initial encounter (principal); S80.02XA Contusion of left knee, initial encounter; G43.909 Migraine, unspecified, not intractable, without status migrainosus; I10 Essential (primary) hypertension; F90.9 Attention-deficit hyperactivity disorder, unspecified type; E03.9 Hypothyroidism, unspecified; F43.10 Post-traumatic stress disorder, unspecified; F31.9 Bipolar disorder, unspecified; Z72.9 Problem related to lifestyle, unspecified; W09.1XXA Fall from playground swing, initial encounter; Y93.89 Activity, other specified; Y92.830 Public park as the place of occurrence of the external cause; Y99.8 Other external cause status
CPT/HCPCS: 99283

== ENCOUNTER 2018-10-06 14:04 | Emergency (ER) | payer MEDICAID ==
[~2018-10-06] VITALS: Ht 175.3 cm; Wt 75.0 kg
[~2018-10-06 14:04] MED LIST changes: +ABILIFY; +HYDROXYZINE; +LEVOTHYROXINE; +STRATERRA; +TRAZODONE
[2018-10-06 14:57] LABS: BASOPHILS # (AUTO) 0.02 x10^3/uL (0-0.1); BASOPHILS % (AUTO) 0 % (0-1); EOSINOPHILS # (AUTO) 0.09 x10^3/uL (0-0.4); EOSINOPHILS % (AUTO) 1 % (1-7); LYMPHOCYTES # (AUTO) 1.91 x10^3/uL (1-3.4); LYMPHOCYTES % (AUTO) 23 % (22-44); MD NO; MEAN CORPUSCULAR HGB CONC 32.6 g/dL (32.4-35.8); MEAN CORPUSCULAR VOLUME 88.9 fL (80-100); MEAN PLATELET VOLUME 8.3 fL (7.4-10.4); MONOCYTES # (AUTO) 0.57 x10^3/uL (0.2-0.8); MONOCYTES % (AUTO) 7 % (2-9); NEUTROPHILS # (AUTO) 5.75 x10^3/uL (1.8-6.8); NEUTROPHILS % (AUTO) 69 % (42-75); PLATELET COUNT 262 x10^3/uL (130-400); RED BLOOD COUNT 5.19 x10^6/uL (3.82-5.3); RED CELL DISTRIBUTION WIDTH 13.3 % (9.6-15.2)
--- NOTE | 2018-10-06 15:00 | NUR ---
PT UNABLE TO PROVIDE URINE SAMPLE.
[2018-10-06 15:04] LABS: ALBUMIN 3.6 g/dL (3.4-5.0); ANION GAP 5 mmol/L (5-15); CHLORIDE 110 mmol/L (98-107); CREATININE 0.88 mg/dL (0.55-1.02)
[2018-10-06 15:30] VITALS: BP 99/50
--- NOTE | 2018-10-06 16:03 | NUR ---
PT GIVEN D/C PAPERWORK. PT VERBALIZED UNDERSTANDABLE. PT AWARE TO FOLLOW UP WITH PCP NEEDED.
== END 2018-10-06 16:05 | disposition home or self-care (01) ==
LOC: ED 14:42
DX: R11.0 Nausea (principal); R42 Dizziness and giddiness; E03.9 Hypothyroidism, unspecified
CPT/HCPCS: 36415; 80048; 82040; 84703; 85025; 99283

== ENCOUNTER 2018-11-05 14:19 | Emergency (ER) | payer MEDICAID ==
[~2018-11-05] VITALS: Ht 175.3 cm; Wt 74.0 kg
[2018-11-05 14:22] VITALS: BP 137/78
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
== END 2018-11-05 15:37 | disposition home or self-care (01) ==
LOC: ED 15:30
DX: J00 Acute nasopharyngitis [common cold] (principal); B97.89 Other viral agents as the cause of diseases classified elsewhere; F17.200 Nicotine dependence, unspecified, uncomplicated; I10 Essential (primary) hypertension; G40.909 Epilepsy, unspecified, not intractable, without status epilepticus
CPT/HCPCS: 71046; 99283

== ENCOUNTER 2018-11-14 17:46 | Emergency (ER) | payer MEDICAID ==
[~2018-11-14] VITALS: Ht 175.3 cm; Wt 66.7 kg
[2018-11-14 17:48] VITALS: BP 114/74
--- NOTE | 2018-11-14 18:32 | NUR ---
RESEARCH LABORATORY TECHNICIAN: Patient notified registration that she has elected to leave without being seen by provider as the emergency department "stresses me out" per patient.
== END 2018-11-14 18:35 | disposition left against medical advice (07) ==
LOC: ED 18:29
DX: F41.9 Anxiety disorder, unspecified (principal); Z53.21 Procedure and treatment not carried out due to patient leaving prior to being seen by health care provider

== ENCOUNTER 2018-11-18 23:55 | Emergency (ER) | payer MEDICAID ==
[~2018-11-18] VITALS: Ht 175.3 cm; Wt 75.0 kg
[2018-11-19] VITALS: BP 117/67
--- NOTE | 2018-11-19 00:07 | NUR ---
PT TO ROOM ACCOMPANIED BY EMS. PT PICKED UP IN PARK, HAS HAD SI X 36 HOURS, NO PREVIOUS ATTEMPTS. ASSESSMENT DONE. URINE CUP PROVIDED FOR PT AND POC DISCUSSED WITH PT. PT IS FAMILIAR WITH ROUTINE FOR SI.
--- NOTE | 2018-11-19 00:18 | NUR ---
PT'S BELONGINGS PUT INTO 2 BAGS AND PUT INTO LOCKER. PT IS NOT ABLE TO PROVIDE URINE SAMPLE AT THIS TIME.
--- NOTE | 2018-11-19 00:40 | NUR ---
CALLED RANDAL MATUTE
[2018-11-19 00:42] LABS: BASOPHILS # (AUTO) 0.03 x10^3/uL (0-0.1); BASOPHILS % (AUTO) 0 % (0-1); EOSINOPHILS # (AUTO) 0.07 x10^3/uL (0-0.4); EOSINOPHILS % (AUTO) 1 % (1-7); LYMPHOCYTES # (AUTO) 2.56 x10^3/uL (1-3.4); LYMPHOCYTES % (AUTO) 23 % (22-44); MD NO; MEAN CORPUSCULAR HGB CONC 32.7 g/dL (32.4-35.8); MEAN CORPUSCULAR VOLUME 88.8 fL (80-100); MEAN PLATELET VOLUME 8.1 fL (7.4-10.4); MONOCYTES # (AUTO) 0.58 x10^3/uL (0.2-0.8); MONOCYTES % (AUTO) 5 % (2-9); NEUTROPHILS # (AUTO) 7.87 x10^3/uL (1.8-6.8); NEUTROPHILS % (AUTO) 71 % (42-75); PLATELET COUNT 326 x10^3/uL (130-400); RED CELL DISTRIBUTION WIDTH 13.5 % (9.6-15.2)
[2018-11-19 00:52] LABS: ALBUMIN 3.4 g/dL (3.4-5.0); ANION GAP 7 mmol/L (5-15); CALCIUM 8.8 mg/dL (8.5-10.1); CHLORIDE 110 mmol/L (98-107); CREATININE 0.78 mg/dL (0.55-1.02)
--- NOTE | 2018-11-19 00:53 | NUR ---
[facility] CALLED BACK PT HAS MEDICAID EXPANSION. CALLED MEDICAID EXPANSION TO GET EVAL
[2018-11-19 00:59] LABS: SALICYLATE LEVEL < 1.7 mg/dL (2.8-20.0)
--- NOTE | 2018-11-19 01:08 | NUR ---
PT STATES NOT SI ANYMORE AND WISHES TO LEAVE. NOTIFIED. PT OKAY TO LEAVE, BELONGINGS RETURNED, JUICE AND CRACKERS PROVIDED.
--- NOTE | 2018-11-19 01:29 | NUR ---
PT GIVEN DC INSTRUCTIONS. PT'S AOX4. RESPS EVEN AND UNLABORED. NO ACUTE DISTRESS AT DC. PT AMB TO DC WITH STEADY GAIT.
== END 2018-11-19 01:30 | disposition home or self-care (01) ==
LOC: ED 11-19 00:34
DX: F41.1 Generalized anxiety disorder (principal); F17.200 Nicotine dependence, unspecified, uncomplicated; E03.9 Hypothyroidism, unspecified; G40.909 Epilepsy, unspecified, not intractable, without status epilepticus; F31.9 Bipolar disorder, unspecified
CPT/HCPCS: 36415; 80048; 80307; 82040; 84703; 85025; 99284

== ENCOUNTER 2018-12-11 10:45 | Emergency (ER) | payer MEDICAID ==
[~2018-12-11] VITALS: Ht 172.7 cm; Wt 72.0 kg
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
[2018-12-11 10:53] VITALS: BP 119/68
--- NOTE | 2018-12-11 11:05 | NUR ---
MD ROUNDED AND INSPECTED WOUND, HE SEES NO SIGNS OF INFECTION AND REQUESTS THAT WOUND BE CLEANED AND DRESSED AND THEN THE PT CAN BE DISCHARGED.
[2018-12-11] MEDS ORDERED: NEOSPORIN OINT. PKT 1 PACKET ONE (11:11)
[2018-12-11] MEDS ORDERED: DIPH,PERTUSS(ACELL),TET VAC/PF 0.5 ML IM-VACC ONE (11:22)
--- NOTE | 2018-12-11 11:23 | NUR ---
Patient/Caregiver given discharge instructions and they have confirmed that they understand the instructions. Patient ambulatory with steady gait. Wound cleaned and dressed. Extra supplies given to pt.
[2019-01-12] MEDS ORDERED: ARIP2TAB2 PO (10:09)
[2019-01-12] MEDS ORDERED: LEVO25TA4 PO (10:09)
[2019-02-25] MEDS ORDERED: ATOM10CA PO (05:50)
== END 2018-12-11 11:25 | disposition home or self-care (01) ==
LOC: ED 11:16
DX: S90.821A Blister (nonthermal), right foot, initial encounter (principal); I10 Essential (primary) hypertension; F31.9 Bipolar disorder, unspecified; F17.200 Nicotine dependence, unspecified, uncomplicated; X58.XXXA Exposure to other specified factors, initial encounter; Y93.89 Activity, other specified; Y92.89 Other specified places as the place of occurrence of the external cause; Y99.8 Other external cause status
CPT/HCPCS: 99283

== ENCOUNTER 2018-12-13 19:26 | Emergency (ER) | payer MEDICAID ==
[~2018-12-13] VITALS: Ht 172.7 cm; Wt 72.0 kg
[2018-12-13 19:36] VITALS: BP 125/70
== END 2018-12-13 21:05 | disposition home or self-care (01) ==
LOC: ED 20:29
DX: R45.851 Suicidal ideations (principal); F32.9 Major depressive disorder, single episode, unspecified; G40.909 Epilepsy, unspecified, not intractable, without status epilepticus; I10 Essential (primary) hypertension; F43.10 Post-traumatic stress disorder, unspecified; E03.9 Hypothyroidism, unspecified; F41.1 Generalized anxiety disorder
CPT/HCPCS: 36415; 80053; 80307; 84703; 85025; 99284

== ENCOUNTER 2019-03-15 05:36 | Emergency (ER) | payer MEDICAID ==
[~2019-03-15] VITALS: Ht 162.6 cm; Wt 72.2 kg
[~2019-03-15 05:36] MED LIST changes: +ARIP2TAB2 PO; +ATOM10CA PO; +LEVO25TA4 PO
[2019-03-15] MEDS ORDERED: NEOSPORIN OINT. PKT 1 PACKET ONE (05:43)
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
[2019-03-15] MEDS ORDERED: IBUPROFEN 200 MG TABLET ONE (05:51)
[2019-03-15] MEDS ORDERED: IBUPROFEN 600 MG TABLET PO ONE (06:00)
[2019-03-15 06:41] VITALS: BP 121/66
--- NOTE | 2019-03-15 06:49 | NUR ---
REPORT TO ADRIANO SCHUMACHER. PT RESTING ON [facility], ALL MONITORING IN PLACE.
== END 2019-03-15 07:35 | disposition home or self-care (01) ==
LOC: ED 06:37
DX: S16.1XXA Strain of muscle, fascia and tendon at neck level, initial encounter (principal); S00.91XA Abrasion of unspecified part of head, initial encounter; F17.200 Nicotine dependence, unspecified, uncomplicated; G40.909 Epilepsy, unspecified, not intractable, without status epilepticus; Y04.8XXA Assault by other bodily force, initial encounter; Y93.89 Activity, other specified; Y92.89 Other specified places as the place of occurrence of the external cause; Y99.8 Other external cause status
CPT/HCPCS: 72050; 99283

== ENCOUNTER 2019-03-28 21:22 | Emergency (ER) | payer MEDICAID ==
[~2019-03-28] VITALS: Ht 175.3 cm; Wt 71.5 kg
[2019-03-28 21:52] VITALS: BP 117/58
[2019-03-28] MEDS ORDERED: NEOSPORIN OINT. PKT 1 PACKET ONE (22:40)
--- NOTE | 2019-03-28 22:53 | NUR ---
DC EDUCATION PROVIDED, PT DEMONSTRATES UNDERSTANDING. PT AMBULATED STEADILY TO DC WITH RN. PROVIDED [facility]I [facility]CHER FOR SAFE TRANSPORT AND BLANKET FOR WARMTH. PT HAS JACKET, PANTS AND CLOSED TOED SHOES APPROPRIATE FOR WEATHER
== END 2019-03-28 22:56 | disposition home or self-care (01) ==
LOC: ED 22:10
DX: L03.115 Cellulitis of right lower limb (principal); I10 Essential (primary) hypertension; E03.9 Hypothyroidism, unspecified; F41.9 Anxiety disorder, unspecified; G40.909 Epilepsy, unspecified, not intractable, without status epilepticus; G43.909 Migraine, unspecified, not intractable, without status migrainosus; F19.90 Other psychoactive substance use, unspecified, uncomplicated; Z59.0 Homelessness
CPT/HCPCS: 10060; 99283

== ENCOUNTER 2019-08-27 13:13 | Emergency (ER) | payer MEDICAID ==
[~2019-08-27] VITALS: Ht 167.6 cm; Wt 61.4 kg
[~2019-08-27 13:13] MED LIST changes: +HYDR-2995 PO; -HYDR10TA4 PO; -TRAZ-137 PO; +TRAZ-175 PO
[2019-08-27 13:47] LABS: BASOPHILS # (AUTO) 0.01 x10^3/uL (0-0.1); BASOPHILS % (AUTO) 0 % (0-1); EOSINOPHILS # (AUTO) 0.11 x10^3/uL (0-0.4); EOSINOPHILS % (AUTO) 2 % (1-7); LYMPHOCYTES # (AUTO) 2.25 x10^3/uL (1-3.4); LYMPHOCYTES % (AUTO) 32 % (22-44); MD NO; MEAN CORPUSCULAR HEMOGLOBIN 28.8 pg (27.0-34.8); MEAN CORPUSCULAR HGB CONC 32.8 g/dL (32.4-35.8); MEAN CORPUSCULAR VOLUME 87.8 fL (80-100); MEAN PLATELET VOLUME 7.7 fL (7.4-10.4); MONOCYTES # (AUTO) 0.55 x10^3/uL (0.2-0.8); MONOCYTES % (AUTO) 8 % (2-9); NEUTROPHILS # (AUTO) 4.11 x10^3/uL (1.8-6.8); NEUTROPHILS % (AUTO) 59 % (42-75); PLATELET COUNT 303 x10^3/uL (130-400); RED BLOOD COUNT 4.49 x10^6/uL (3.82-5.3); RED CELL DISTRIBUTION WIDTH 13.5 % (9.6-15.2)
[2019-08-27 13:56] LABS: ALBUMIN 3.2 g/dL (3.4-5.0); ANION GAP 6 mmol/L (5-15); CALCIUM 8.9 mg/dL (8.5-10.1); CHLORIDE 108 mmol/L (98-107)
--- NOTE | 2019-08-27 14:00 | NUR ---
PT RESTING COMFORTABLY. LUNCH TRAY PROVIDED. NO NEEDS AT THIS TIME.
[2019-08-27 14:01] LABS: ALANINE AMINOTRANSFERASE 25 U/L (12-78); ALKALINE PHOSPHATASE 69 U/L (45-117); BILIRUBIN,TOTAL 0.3 mg/dL (0.2-1.0); CREATININE 0.72 mg/dL (0.55-1.02); TOTAL PROTEIN 6.9 g/dL (6.4-8.2)
[2019-08-27 14:43] VITALS: BP 105/52
[2019-08-27 15:09] LABS: MICROSCOPIC INDICATED
[2019-08-27 15:11] LABS: CULTURE INDICATED? YES
== END 2019-08-27 15:31 | disposition home or self-care (01) ==
LOC: ED 13:45
DX: R55 Syncope and collapse (principal); R42 Dizziness and giddiness; H57.89 Other specified disorders of eye and adnexa; G43.909 Migraine, unspecified, not intractable, without status migrainosus; E03.9 Hypothyroidism, unspecified; I10 Essential (primary) hypertension; F17.200 Nicotine dependence, unspecified, uncomplicated
CPT/HCPCS: 36415; 80053; 81001; 84703; 85025; 87077; 87086; 87186; 99283

== ENCOUNTER 2019-08-31 22:43 | Emergency (ER) | payer MEDICAID ==
[~2019-08-31] VITALS: Ht 177.8 cm; Wt 69.2 kg
[2019-08-31 22:47] VITALS: BP 125/49
--- NOTE | 2019-08-31 23:08 | NUR ---
THIS IS A 24Y F THAT COMES IN TONIGHT FOR BODY ACHES AND DIZZINESS ALONG WITH A COUGH X3 DAYS. PT CONNECTED TO MONITORING, GARY HART
--- NOTE | 2019-08-31 23:09 | NUR ---
md at bedside to assess pt
--- NOTE | 2019-08-31 23:18 | NUR ---
flu swab sent with lab
--- NOTE | 2019-08-31 23:25 | NUR ---
friend jen samuel, , states that he can come pecan picker pt at discharge.
[2019-08-31 23:44] LABS: RAPID INFLUENZA A Negative (Negative); RAPID INFLUENZA B Negative (Negative)
--- NOTE | 2019-09-01 00:31 | NUR ---
Contacted radiology for status of chest xray read, states he will follow up.
== END 2019-09-01 00:49 | disposition home or self-care (01) ==
LOC: ED 23:01
DX: R05 Cough (principal); M79.10 Myalgia, unspecified site; Z72.9 Problem related to lifestyle, unspecified; F17.210 Nicotine dependence, cigarettes, uncomplicated; I10 Essential (primary) hypertension; E03.9 Hypothyroidism, unspecified; G40.909 Epilepsy, unspecified, not intractable, without status epilepticus; F17.200 Nicotine dependence, unspecified, uncomplicated; G89.29 Other chronic pain
CPT/HCPCS: 71045; 87400; 99284; 99406

== ENCOUNTER 2019-10-15 17:00 | Emergency (ER) | payer MEDICAID ==
[~2019-10-15] VITALS: Ht 177.8 cm; Wt 69.7 kg
[2019-10-15 17:01] VITALS: BP 142/76
--- NOTE | 2019-10-15 17:44 | NUR ---
AFTER PRESS TENDER SMOKE SIGNAL EXAM, PEMA CRIMINAL PSYCHOLOGIST SPEAKING WITH PT.
--- NOTE | 2019-10-15 18:40 | NUR ---
PROVIDED DINNER AND NOW RESTING WITH EYES CLOSED WHILE AWAITING [facility].
--- NOTE | 2019-10-15 18:59 | NUR ---
[facility] TO BEDSIDE.
--- NOTE | 2019-10-15 19:09 | NUR ---
REPORT TO NANCY OH
--- NOTE | 2019-10-15 19:11 | NUR ---
BEDSIDE REPORT RECEIVED FROM ADRIANO SEYMOUR. PT LAYING IN BED, TALKING WITH RPD, NO SIGNS OF DISTRESS, WILL CONTINUE TO MONITOR.
== END 2019-10-15 19:43 | disposition home or self-care (01) ==
LOC: ED 18:43
DX: T74.21XA Adult sexual abuse, confirmed, initial encounter (principal); R00.0 Tachycardia, unspecified; E03.9 Hypothyroidism, unspecified; F17.200 Nicotine dependence, unspecified, uncomplicated; Z72.9 Problem related to lifestyle, unspecified; Y07.9 Unspecified perpetrator of maltreatment and neglect
CPT/HCPCS: 93005; 99283

== ENCOUNTER 2019-11-29 17:03 | Emergency (ER) | payer MEDICAID ==
[~2019-11-29] VITALS: Ht 177.8 cm; Wt 69.1 kg
--- NOTE | 2019-11-29 17:30 | NUR ---
LATE ENTRY:: PT CLOTHING REMOVED AND PLACED IN HOSPITAL GOWN. PT ABLE TO FOLLOW COMMANDS, MOVEMENT IS EXAGGERATED. PT ABLE TO ANSWER QUESTIONS, THEN MUMBLES TO SELF AND GOES BACK TO SLEEP. NO OBVIOUS INJURY OBSEVERED AT THIS TIME. NO BRUISING NOR LAC TO SCALP OR FACE. NO OBVIOUS BRUISING TO PT BACK, TORSO NOR BILAT LEGS. PT RESTING CALMLY IN BED AT THIS TIME. WILL CONTINUE TO MONITOR.
[2019-11-29 18:52] VITALS: BP 108/63
--- NOTE | 2019-11-29 18:55 | NUR ---
TIMOTHY REPORT FROM NICOLE OH. PT CARE TRANSFERRED AT THIS TIME.
== END 2019-11-29 18:56 | disposition home or self-care (01) ==
LOC: ED 17:45
DX: F15.129 Other stimulant abuse with intoxication, unspecified (principal); F41.9 Anxiety disorder, unspecified; R41.82 Altered mental status, unspecified; F17.210 Nicotine dependence, cigarettes, uncomplicated
CPT/HCPCS: 99283; 99406

== ENCOUNTER 2019-12-21 15:58 | Emergency (ER) | payer MEDICAID ==
[~2019-12-21] VITALS: Ht 177.8 cm; Wt 67.0 kg
--- NOTE | 2019-12-21 16:16 | NUR ---
Pt to room from [facility], ambulatory with steady gait.
[2019-12-21 16:22] VITALS: BP 117/66
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
--- NOTE | 2019-12-21 18:09 | NUR ---
Patient given discharge instructions and they have confirmed that they understand the instructions. Patient ambulatory with steady gait.
== END 2019-12-21 18:10 | disposition home or self-care (01) ==
LOC: ED 16:45
DX: S00.93XA Contusion of unspecified part of head, initial encounter (principal); F43.0 Acute stress reaction; R42 Dizziness and giddiness; I10 Essential (primary) hypertension; I51.7 Cardiomegaly; F17.200 Nicotine dependence, unspecified, uncomplicated; Y04.8XXA Assault by other bodily force, initial encounter; Y93.89 Activity, other specified; Y92.098 Other place in other non-institutional residence as the place of occurrence of the external cause; Y99.8 Other external cause status
CPT/HCPCS: 93005; 99283

== ENCOUNTER 2020-01-29 17:00 | Emergency (ER) | payer MEDICAID ==
[~2020-01-29] VITALS: Ht 167.6 cm; Wt 70.0 kg
[2020-01-29 17:49] LABS: BASOPHILS # (AUTO) 0.02 x10^3/uL (0-0.1); BASOPHILS % (AUTO) 0 % (0-1); EOSINOPHILS % (AUTO) 3 % (1-7); LYMPHOCYTES # (AUTO) 1.56 x10^3/uL (1-3.4); LYMPHOCYTES % (AUTO) 24 % (22-44); MD NO; MEAN CORPUSCULAR HEMOGLOBIN 28.9 pg (27.0-34.8); MEAN CORPUSCULAR HGB CONC 32.1 g/dL (32.4-35.8); MEAN PLATELET VOLUME 7.9 fL (7.4-10.4); MONOCYTES # (AUTO) 0.48 x10^3/uL (0.2-0.8); MONOCYTES % (AUTO) 8 % (2-9); NEUTROPHILS # (AUTO) 4.18 x10^3/uL (1.8-6.8); NEUTROPHILS % (AUTO) 65 % (42-75); PLATELET COUNT 241 x10^3/uL (130-400); RED CELL DISTRIBUTION WIDTH 13.6 % (9.6-15.2)
[2020-01-29 18:00] LABS: ALANINE AMINOTRANSFERASE 23 U/L (12-78); ALBUMIN 3.2 g/dL (3.4-5.0); ANION GAP 4 mmol/L (5-15); CALCIUM 8.7 mg/dL (8.5-10.1); CHLORIDE 109 mmol/L (98-107); CREATININE 0.75 mg/dL (0.55-1.02)
[2020-01-29 18:01] LABS: ALKALINE PHOSPHATASE 72 U/L (45-117); BILIRUBIN,TOTAL 0.4 mg/dL (0.2-1.0); TOTAL PROTEIN 6.9 g/dL (6.4-8.2)
[2020-01-29 18:04] LABS: SALICYLATE LEVEL < 1.7 mg/dL (2.8-20.0)
--- NOTE | 2020-01-29 20:38 | NUR ---
PT RESTING IN BED WITH SITTER A DOOR, PT ROOM SI SECURE. PT DENIED ANY WANTS OR NEEDS AT THIS TIME. RN WILL CONTINUE TO MONITOR PT. PT AWARE THAT WE NEED URINE FROM HER EVELIA
--- NOTE | 2020-01-30 00:56 | NUR ---
PT RESTING IN BED WITH SITTER A DOOR, PT ROOM SI SECURE. PT DENIED ANY WANTS OR NEEDS AT THIS TIME. RN WILL CONTINUE TO MONITOR PT. PT SAID SHE SILL CAN NOT URINATE FOR DRUG TOX SAMPLE. PT PROVIDED WATER
--- NOTE | 2020-01-30 02:58 | NUR ---
magali spear got ua from pt., sent ua to lab.
[2020-01-30 03:14] LABS: HCG UR SG 1.025 (1.003-1.030)
--- NOTE | 2020-01-30 03:21 | NUR ---
MT: PSYCH PACKET FAXED TO [facility], [place], AND [facility].
[2020-01-30 03:27] LABS: AMPHETAMINE SCREEN, URINE Positive (Negative); BARBITURATE SCREEN, URINE Negative (Negative); BENZODIAZEPINE SCREEN, URINE Negative (Negative); CANNABINOID SCREEN, URINE Negative (Negative); COCAINE SCREEN, URINE Negative (Negative); METHADONE SCREEN, URINE Negative (Negative); OPIATE SCREEN, URINE Negative (Negative)
--- NOTE | 2020-01-30 05:47 | NUR ---
MT: [facility] ACCEPTED PT FOR 899. ACCEPTING DOCTOR IS DR. BEDOLLA.
--- NOTE | 2020-01-30 06:10 | NUR ---
tp: faxed packet to [facility] for transport
--- NOTE | 2020-01-30 06:21 | NUR ---
PT RESTING IN BED WITH SITTER A DOOR, PT ROOM SI SECURE. PT DENIED ANY WANTS OR NEEDS AT THIS TIME. RN WILL CONTINUE TO MONITOR PT
--- NOTE | 2020-01-30 06:53 | NUR ---
BEDSIDE REPORT RECEIVED FROM MER[facility] MITCHELL RN.
--- NOTE | 2020-01-30 07:01 | NUR ---
PT RESTING IN BED WITH EYES CLOSED AND SITTER A DOOR, PT ROOM SI SECURE. PT DENIED ANY WANTS OR NEEDS AT THIS TIME. COMFORT MEASURES PROVIDED. WILL CONTINUE TO MONITOR PT.
--- NOTE | 2020-01-30 08:05 | NUR ---
PT RESTING COMFORTABLY IN BED WITH EYES CLOSED AND SITTER A DOOR, PT ROOM SI SECURE. PT DENIED ANY WANTS OR NEEDS AT THIS TIME. COMFORT MEASURES PROVIDED. WILL CONTINUE TO MONITOR PT.
[2020-01-30 08:35] VITALS: BP 98/72
--- NOTE | 2020-01-30 08:55 | NUR ---
[facility] AT BEDSIDE TO TRANSPORT PT TO [facility].
== END 2020-01-30 09:11 ==
LOC: ED 18:24
DX: R45.851 Suicidal ideations (principal); F41.9 Anxiety disorder, unspecified; F32.9 Major depressive disorder, single episode, unspecified; F43.10 Post-traumatic stress disorder, unspecified
CPT/HCPCS: 36415; 80053; 80307; 81025; 85025; 99285

== ENCOUNTER 2020-05-03 15:32 | Emergency (ER) | payer MEDICAID | END 2020-05-03 16:30 | disposition left against medical advice (07) | LOC: ED 15:45 | DX: R06.02 Shortness of breath (principal); M79.10 Myalgia, unspecified site; R68.83 Chills (without fever); Z53.21 Procedure and treatment not carried out due to patient leaving prior to being seen by health care provider ==

== ENCOUNTER 2020-05-25 05:46 | Emergency (ER) | payer MEDICAID ==
[~2020-05-25] VITALS: Ht 177.8 cm; Wt 55.0 kg
--- NOTE | 2020-05-25 05:56 | NUR ---
Pt states "im just cold, turn off lights and let me just sleep". Speaks full sentences, VSS. Call dela cruz in reach, will continue to monitor. Pt denies SI/HI.
--- NOTE | 2020-05-25 06:12 | NUR ---
PCXR DONE. REQUESTED ALBUTEROL MDI.
[2020-05-25] MEDS ORDERED: ALBUTEROL HFA 90 MCG/SPRAY INH ONE (06:30)
--- NOTE | 2020-05-25 06:35 | NUR ---
EKG DONE HANDED TO ELMER GARCIA. ALBUTEROL MDI ADMIN TO PT, AT BEDSIDE.
--- NOTE | 2020-05-25 07:19 | NUR ---
Report from Cris OH. Pt resting in bed with eyes closed, resp even and unlabored, GARY.
[2020-05-25 08:18] VITALS: BP 105/50
--- NOTE | 2020-05-25 08:18 | NUR ---
Patient given discharge instructions and they have confirmed that they understand the instructions. Patient ambulatory with steady gait. bus pass given
== END 2020-05-25 08:20 | disposition home or self-care (01) ==
LOC: ED 06:08
DX: R06.00 Dyspnea, unspecified (principal); I10 Essential (primary) hypertension; E03.9 Hypothyroidism, unspecified; G43.909 Migraine, unspecified, not intractable, without status migrainosus; M79.7 Fibromyalgia
CPT/HCPCS: 71045; 93005; 94640; 99283

== ENCOUNTER 2020-09-03 20:21 | Emergency (ER) | payer MEDICAID ==
[~2020-09-03] VITALS: Ht 180.3 cm; Wt 68.0 kg
--- NOTE | 2020-09-03 21:08 | NUR ---
pt wheeled back to room, resting in [facility], provided blanket per requests. states dizziness and body aches, denies cp, n/v, or sob. erp at bedside
[2020-09-03] MEDS ORDERED: MECLIZINE CHEWABLE 25 MG TAB PO ONE (21:30)
[2020-09-03] MEDS ORDERED: BENZONATATE 100 MG CAPSULE PO ONE (21:30)
[2020-09-03 21:34] LABS: BASOPHILS % (AUTO) 0 % (0-1); EOSINOPHILS % (AUTO) 1 % (1-7); LYMPHOCYTES % (AUTO) 23 % (22-44); MEAN CORPUSCULAR HEMOGLOBIN 28.3 pg (27.0-34.8); MEAN PLATELET VOLUME 7.8 fL (7.4-10.4); MONOCYTES % (AUTO) 10 % (2-9); NEUTROPHILS % (AUTO) 65 % (42-75); PLATELET COUNT 268 x10^3/uL (130-400); RED CELL DISTRIBUTION WIDTH 14.3 % (9.6-15.2)
[2020-09-03 21:36] LABS: MD NO
[2020-09-03] MEDS ORDERED: MECLIZINE CHEWABLE 25 MG TAB ONE (21:42)
[2020-09-03] MEDS ORDERED: BENZONATATE 100 MG CAPSULE ONE (21:42)
[2020-09-03 21:44] LABS: CHLORIDE 107 mmol/L (98-107)
[2020-09-03 21:45] LABS: ALBUMIN 3.4 g/dL (3.4-5.0); ANION GAP 2 mmol/L (5-15); CALCIUM 8.7 mg/dL (8.5-10.1); CREATININE 0.71 mg/dL (0.55-1.02)
[2020-09-03 22:56] VITALS: BP 135/94
== END 2020-09-04 00:12 | disposition home or self-care (01) ==
LOC: ED 20:51
DX: R42 Dizziness and giddiness (principal); M79.10 Myalgia, unspecified site; R07.89 Other chest pain; R05 Cough; E03.9 Hypothyroidism, unspecified; G40.909 Epilepsy, unspecified, not intractable, without status epilepticus; G43.909 Migraine, unspecified, not intractable, without status migrainosus; F17.210 Nicotine dependence, cigarettes, uncomplicated
CPT/HCPCS: 36415; 71045; 80048; 82040; 84703; 85025; 93005; 99285